=== PATIENT | female | born 1995 | race Caucasian/White ===

== ENCOUNTER 2017-05-10 17:58 | Emergency (ER) | payer OTHER ==
[~2017-05-10] VITALS: Ht 170.2 cm; Wt 145.4 kg
[~2017-05-10 17:58] MED LIST: CITA40TA13 PO; ETON68IM3 SQ; NAPR500T PO
[2017-05-10 18:07] VITALS: BP 119/81; PULSE 98; RESP 18; O2SAT 98
--- NOTE | 2017-05-10 19:34 | ED.REPORT ---
HPI-Hand Prob/Inj Date of Service May 10, 2017 ED Provider: Parviz Ball MD 21 y/o female with no pertinent hx presents to the ED complaining of right little finger injury, onset 2 hours ago. The pt slammed her finger on the corner of a bench while she was trying to stand up. She describes it as a throbbing pain and rates it 6/10 in severity. She denies any other symptoms, including wrist pain. Nursing Notes Stated Complaint: POSSIBLE BROKEN FINGER Chief Complaint: Extremity Trauma Nursing Notes Reviewed: Yes Allergies: Coded Allergies: erythromycin base (Verified Allergy, Unknown, 10/02/16) Scheduled Citalopram (Citalopram) 40 Mg Tablet 40 MG PO DAILY Scheduled PRN Naproxen (Naprosyn) 500 Mg Tablet 500 MG PO BID PRN PRN For Pain Miscellaneous Medications Etonogestrel (Nexplanon) 68 Mg Implant 68 MG SQ General Time Seen by Provider: 19:21 Chief Complaint Finger injury right Hx Obtained From: Patient Arrived By: Walk-in Onset Occurred: 1 - 4 hours ago Symptom Duration: Since onset Caused by: Blow Location: Right Hand: : Finger... (Little) Quality: Throbbing Radiation: Does not radiate Severity: Current: Pain level 6 out of 10 Severity: Maximum: Severe Recent Healthcare: Recent doctor visit Similar Sx Previous: No Past Medical History Past Medical History Notes: PCP: Dr. Dudley Past Medical History Dislocated patellas and inflammation Pyelonephritis Reports: GERD Reports: Depression, Migraines Past Surgical History none reported Family History noncontributory Smoking History Current Every Day Smoker Social History Alcohol Use: Denies alcohol use Drug Use: Denies drug use Other Social History: Good social support, Lives with children, Local resident Ambulatory Status Independent Review of Systems Musculoskeletal: Reports: Extremity pain (right little finger), Extremity swelling (right little finger), Denies: Joint pain (wrist) Complete sys rev & neg: except as marked. Physical Exam Initial Vital Signs Vital Signs (First) Date Time Temp Pulse Resp B/P Pulse Ox O2 Delivery O2 Flow Rate FiO2 05/10/17 18:07 36.4 98 18 119/81 98 Room Air Initial VS: Reviewed Head / Eyes: Atraumatic, Normocephalic Neck: Supple, Non-tender, Full range of motion Respiratory: Breath sounds normal, No respiratory distress Cardiovascular: Intact distal pulses Extremities: Vascular intact, Neuro intact, No swelling, No tenderness Skin: Warm, Dry, No cyanosis Neurologic: Alert, Oriented, Nonfocal Wrist / Hand: No deformity, Neurologic intact, Vascular intact Ecchymosis at the palmar aspect of the PIP joint with swelling. General/Constitutional: Awake, Alert, Cooperative Interpretation & Diagnostics X-Ray Interpretation Xray Interpretation: IMPRESSION: Slight subluxation at the fifth IP joint with fifth middle phalanx intra-articular fracture. Dictated by: Helen Fermin M.D. on 05/10/2017 at 19:32 Approved by: Helen Fermin M.D. on 05/10/2017 at 19:34 X-Ray Ordered: Hand right Interpretation / Wet Read by: Interpret - Radiologist Procedures Splint Application - Fx Mgt Splint Application- Fx Mgt: Lumen foam splint placed on the right fifth finger Procedure Performed by: ED physician Precise Anatomic Location: Right fifth finger Type of Immobilization: Aluminum-foam Definitive Fracture Care: Pain control, Splint Post-Procedure / Complications: Cap refill normal, Cap refill abnormal, Post splint vascular nl Splint Post-Applic Eval Extremity Condition: Cap refill < 2 sec, Distal sensation intact, Distal motor Intact, No compartment syndrome Re-Eval/Medical Decision Re-Evaluation/Progress : Time of Eval: 19:45 Patient Status: Condition improved Re-Evaluation/Progress Note: Rechecked pt. Discussed imaging results, diagnosis and plan to discharge. Pt understands and agrees with the plan. F/U instructions and RTER warning given. All questions addressed. Counseled Regarding: Diagnosis, Need for follow-up, When/why to return to ED Discharge & Departure Primary Impression: Finger fracture, right Encounter type: initial encounter Fracture type: closed Qualified Code: S62.609A - Fracture of unspecified phalanx of unspecified finger, initial encounter for closed fracture Disposition: Home Discharge Condition All VS Reviewed: Yes Condition: Stable Patient Instructions: Finger Fracture (ED) Additional Instructions: Thank you for entrusting us with your care today. Your X-ray shows a fracture. Leave the splint on your finger. Follow up with your doctor in 1 week. Return to the emergency department in case of worsening pain or any new or concerning symptoms. Continue the naproxen as you have been taking it. Use hydrocodone/APAP 5/325 one or 2 at bedtime as needed for more severe pain. Referrals: Sandra Dudley MD (PCP) Scribe Attestation Portions of this note were transcribed by Adele Multani. I,, personally performed the history, physical exam and medical decision-making;I reviewed and confirmed the accuracy of the information in the transcribed note. Signed by Kayy Wolf. 05/10/17 22:49 copies to: Sandra Dudley MD, Kirk H MD May 10, 2017 19:34 Adele Multani May 10, 2017 20:00
--- NOTE | 2017-05-10 19:35 | DRSVH ---
PROCEDURE: X-RAY FINGERS, TWO VIEWS INDICATIONS: injury TECHNIQUE: AP hand, 2 views of the fifth finger(s) acquired. COMPARISON: None. FINDINGS: Bones: Slight appearance of subluxation at the fifth IP joint. There is a fracture at the base of the middle fifth phalanx with intra-articular extension. No suspicious bony lesions. Soft tissues: No suspicious soft tissue calcifications. IMPRESSION: Slight subluxation at the fifth IP joint with fifth middle phalanx intra-articular fractu re. Dictated by: Helen Fermin M.D. on 05/10/2017 at 19:32 Approved by: Helen Fermin M.D. on 05/10/2017 at 19:34
[2017-05-10] MEDS ORDERED: _HYDROcodone/APAP 5-325 mg Tablet PO PRN (20:00)
== END 2017-05-10 20:19 | disposition home or self-care (01) ==
LOC: SED 17:58
DX: S62.626A Displaced fracture of middle phalanx of right little finger, initial encounter for closed fracture (principal); W23.1XXA Caught, crushed, jammed, or pinched between stationary objects, initial encounter; Y93.89 Activity, other specified; Y92.019 Unspecified place in single-family (private) house as the place of occurrence of the external cause; Y99.8 Other external cause status; K21.9 Gastro-esophageal reflux disease without esophagitis; F32.9 Major depressive disorder, single episode, unspecified; F17.200 Nicotine dependence, unspecified, uncomplicated; Z88.1 Allergy status to other antibiotic agents